=== PATIENT | male | born 1980 | race Caucasian/White ===

== ENCOUNTER 2021-02-24 09:31 | Emergency (ER) | payer BC, OTHER ==
[2021-02-24 09:43] VITALS: BP 126/79; PULSE 69; TEMP 97.3; BMI 28.7
[2021-02-24] MEDS ORDERED: KETOROLAC TROMETHAMINE 30 MG/1 ML VIAL IVPUSH ONE (10:00)
[2021-02-24] MEDS ORDERED: SODIUM CHLORIDE 1,000 ML IV STA (10:00)
[2021-02-24] MEDS ORDERED: KETOROLAC TROMETHAMINE 30 MG/1 ML VIAL ONE (10:04)
[2021-02-24 10:23] LABS: BASO % 0.4 % (0-2.0); EOS % 1.9 % (0-4.5); HEMATOCRIT 46.9 % (35.4-49); HEMOGLOBIN 15.9 GM/dL (11.7-16.9); LYMPH % 21.9 % (8-40); MCH 29.1 pg (25.7-33.7); MCHC 33.9 g/dl (32.0-35.9); MEAN CELL VOLUME 85.9 fl (80-96); MEAN PLT VOLUME 9.7 fl (7.5-11.1); MONO % 4.9 % (3.8-10.2); NEUT % 70.9 % (42.8-82.8); PLATELET COUNT 202 K/MM3 (134-434); RBC 5.46 M/mm3 (4.00-5.60); RDW 13.2 % (11.9-15.9); WHITE BLOOD COUNT 9.4 K/mm3 (4.0-10.0)
[2021-02-24 10:45] LABS: ALBUMIN 4.2 g/dl (3.4-5.0); CALCIUM 9.7 mg/dL (8.5-10.1)
[2021-02-24 10:46] LABS: BLOOD UREA NITROGEN 13.1 mg/dL (7-18)
[2021-02-24 10:49] LABS: CREATININE 1.3 mg/dL (0.55-1.3)
[2021-02-24 10:50] LABS: BILIRUBIN,TOTAL 0.6 mg/dL (0.2-1); TOT PROT 7.9 g/dl (6.4-8.2)
[2021-02-24 11:21] LABS: EPI CELLS 3 /uL (0-25.1); HYALINE CASTS 2 /uL (0-3.1); URINE APPEARANCE CLEAR; URINE BACTERIA 14 /uL (0-1359); URINE BILIRUBIN NEGATIVE (NEGATIVE); URINE COLOR YELLOW; URINE GLUCOSE (UA) NEGATIVE (NEGATIVE); URINE KETONE NEGATIVE (NEGATIVE); URINE LEUK ESTERASE NEGATIVE (NEGATIVE); URINE NITRITE NEGATIVE (NEGATIVE); URINE PROTEIN NEGATIVE (NEGATIVE); URINE RBC 70 /uL (0-23.9); URINE UROBILINOGEN 0.2 mg/dL (0.2-1.0); URINE WBC 10 /uL (0-25.8)
[2021-02-24] MEDS ORDERED: TAMSULOSIN HCL 0.4 MG CAP PO ONE (12:15)
[2021-02-24] MEDS ORDERED: TAMSULOSIN HCL 0.4 MG CAP ONE (12:19)
== END 2021-02-24 12:25 | disposition home or self-care (01) ==
LOC: JER 09:31
PROC: 3E0333Z Introduction of Anti-inflammatory into Peripheral Vein, Percutaneous Approach (ICD-10-PCS; principal; 2021-02-24)
PROC: 3E0337Z Introduction of Electrolytic and Water Balance Substance into Peripheral Vein, Percutaneous Approach (ICD-10-PCS; 2021-02-24)
DX: N20.0 Calculus of kidney (principal)
CPT/HCPCS: 36415; 74177-TC; 80053; 81003; 83690; 85025; 99285-25; Q9967

== ENCOUNTER 2021-10-23 12:07 | Emergency (ER) | payer BC, OTHER ==
[2021-10-23 12:34] VITALS: BP 119/78; PULSE 101; TEMP 98.7; BMI 28.7
[2021-10-23] MEDS ORDERED: LOPERAMIDE HCL 2 MG CAPSULE PO ONE (13:21)
[2021-10-23] MEDS ORDERED: LOPERAMIDE HCL 2 MG CAPSULE ONE (13:27)
== END 2021-10-23 13:42 | disposition home or self-care (01) ==
LOC: JER 12:07
DX: R19.7 Diarrhea, unspecified (principal)
CPT/HCPCS: 87804; 99283-25; C9803; U0003; U0005